=== PATIENT | male | born 1960 ===

== ENCOUNTER 2018-08-08 11:27 | Emergency (ER) | payer OTHER ==
[2018-08-08 11:40] VITALS: PULSE 61; RESP 18; TEMP 97; O2SAT 99
[2018-08-08 14:10] VITALS: BP 170/78
--- NOTE | 2018-08-08 14:18 | CT ---
Date of service: 08/08/2018 PROCEDURE: CT HEAD WITHOUT CONTRAST. HISTORY: fall, hit head COMPARISON: None available. TECHNIQUE: Axial computed tomography images were obtained through the head/brain without intravenous contrast. Radiation dose: Total exam DLP = 939.49 mGy-cm. This CT exam was performed using one or more of the following dose reduction techniques: Automated exposure control, adjustment of the mA and/or kV according to patient size, and/or use of iterative reconstruction technique. FINDINGS: HEMORRHAGE: No intracranial hemorrhage. BRAIN: No mass-effect. Limited diffuse cerebral atrophy chronic microangiopathy are identified with posterior fossa contents appear unremarkable. Trace calcifications seen at the bilateral cavernous internal carotid artery segments no cortical edema throughout. VENTRICLES: Unremarkable. No hydrocephalus. CALVARIUM: No destructive bony lesion or displaced fracture identified including through the skullbase. PARANASAL SINUSES: Unremarkable as visualized. No significant inflammatory changes. MASTOID AIR CELLS: Unremarkable as visualized. No inflammatory changes. OTHER FINDINGS: None. IMPRESSION: Minimal age related neuro degenerative change are identified without acute intracranial findings or fracture noted. The findings are age-appropriate.
--- NOTE | 2018-08-08 14:25 | CT ---
Date of service: 08/08/2018 PROCEDURE: CT Cervical Spine without contrast HISTORY: fall, mild neck pain COMPARISON: None available. TECHNIQUE: Axial computed tomography images were obtained of the cervical spine without the use of intravenous contrast. Coronal and sagittal reformatted images were created and reviewed. Radiation dose: Total exam DLP = 373.58 mGy-cm. This CT exam was performed using one or more of the following dose reduction techniques: Automated exposure control, adjustment of the mA and/or kV according to patient size, and/or use of iterative reconstruction technique. FINDINGS: VERTEBRAE: Limited straightening the cervical curvature is appreciated. There is no fracture or spondylolisthesis identified. No destructive bony lesion is identified either. Multilevel mid to inferior cervical spondylosis appreciated, predominantly anterior rather than posterior however. C1-2 articulation appears moderately degenerated and otherwise unremarkable. Craniocervical junction appears intact. DISCS/SPINAL CANAL/NEURAL FORAMINA: No gross disc herniation is appreciable however MRI is available follow-up if this is clinically suspected. C2-3 is unremarkable except for limited uncovertebral osteophytes. At C3-4, right-sided uncovertebral osteophytes mildly narrow the right neural foramen with the left neural foramen widely patent and unremarkable as well as the central canal. At C4-5, mild right degenerative neural foraminal stenosis appreciate from the same cause noted above with central canal and left neural foramina widely patent. At C5-6, mild degenerative left neural foraminal stenosis appreciate with central canal and right neural foramen adequately patent. At C6-7, mild bilateral degenerative neural foraminal stenoses are identified without significant central canal stenosis. Limited disc bulging is not completely excluded here. C7-T1 is unremarkable. PARASPINAL SOFT TISSUES: Unremarkable. OTHER FINDINGS: None. IMPRESSION: Mild straightening of the cervical curvature is appreciate without fracture or spondylolisthesis appreciated. Multilevel degenerative spondylosis predominantly anterior and affects the mid to inferior levels more so than upper cervical spine. Mild multilevel neural foraminal degenerative stenoses as discussed above. No gross disc herniation appreciable however MRI is more sensitive for this diagnosis and can be utilized electively if this is clinically suspected.
--- NOTE | 2018-08-08 14:42 | ED PDOC ---
HPI: Trauma/Fall - HPI Chief Complaint (Provider): Trauma History Per: Patient History/Exam Limitations: no limitations Onset/Duration Of Symptoms: Hrs Additional Complaint(s): 58 year old male presents to the ER for an evaluation of lower back pain and neck pain onset today. Patient states at work he missed the step and fell backwards from a two-step high ladder, hitting the back of his head. He takes baby aspirin, Metoprolol and Norvasc. Patient visited [facility] who are requesting CT of head and neck and to follow-up with them tomorrow. He denies loss of consciousness. <Shanti Sheets S - Last Filed: 08/08/18 20:02> <Reyes Nunez - Last Filed: 08/09/18 16:53> - HPI Time Seen by Provider: 08/08/18 12:23 Chief Complaint (Nursing): Trauma Past Medical History Reviewed: Historical Data, Nursing Documentation, Vital Signs Vital Signs: Last Vital Signs Temp 97.0 F L 08/08/18 11:36 Pulse 61 08/08/18 11:36 Resp 18 08/08/18 11:36 BP 170/78 H 08/08/18 14:09 Pulse Ox 99 08/08/18 11:36 - Medical History PMH: HTN, Hyperlipidemia - Family History Family History: States: Unknown Family Hx - Social History Current smoker - smoking cessation education provided: No Alcohol: Social Drugs: Denies - Immunization History Hx Tetanus Toxoid Vaccination: No <Shanti Sheets S - Last Filed: 08/08/18 20:02> Vital Signs: Last Vital Signs Temp 97.0 F L 08/08/18 11:36 Pulse 61 08/08/18 11:36 Resp 18 08/08/18 11:36 BP 170/78 H 08/08/18 14:09 Pulse Ox 99 08/08/18 20:03 <Reyes Nunez - Last Filed: 08/09/18 16:53> - Allergies Allergies/Adverse Reactions: Allergies Allergy/AdvReac Type Severity Reaction Status Date / Time almond Allergy SWELLING Verified 08/08/18 11:35 clindamycin Allergy SWELLING Verified 08/08/18 11:35 levofloxacin [From Levaquin] Allergy SWELLING Verified 08/08/18 11:35 lisinopril Allergy SWELLING Verified 08/08/18 11:35 sulfamethoxazole Allergy SWELLING Verified 08/08/18 11:35 [From Bactrim] trimethoprim [From Bactrim] Allergy SWELLING Verified 08/08/18 11:35 Review of Systems ROS Statement: Except As Marked, All Systems Reviewed And Found Negative Constitutional: Negative for: Fever Musculoskeletal: Positive for: Neck Pain, Back Pain Neurological: Negative for: Other (LOC) Psych: Negative for: Suicidal ideation (homicidal ideation) <Shanti Sheets S - Last Filed: 08/08/18 20:02> Physical Exam - Reviewed Nursing Documentation Reviewed: Yes Vital Signs Reviewed: Yes - Physical Exam Appears: Positive for: Well, Non-toxic, No Acute Distress Head Exam: Positive for: ATRAUMATIC, NORMOCEPHALIC. Negative for: NORMAL INSPECTION (hematoma to occipital aspect) Skin: Positive for: Normal Color, Warm, Dry. Negative for: Rash Eye Exam: Positive for: Normal appearance Neck: Positive for: Normal, Painless ROM, Supple. Negative for: Decreased ROM Back: Positive for: Normal Inspection. Negative for: L CVA Tenderness, R CVA Tenderness Neurologic/Psych: Positive for: Alert, Oriented (x3). Negative for: Motor/Sensory Deficits <Shanti Sheets S - Last Filed: 08/08/18 20:02> - ECG O2 Sat by Pulse Oximetry: 99 (RA) Pulse Ox Interpretation: Normal <Shanti Sheets S - Last Filed: 08/08/18 20:02> Medical Decision Making Medical Decision Making: Time: 1244 --Cervical Spine w/o Contrast CT --Head w/o Contrast CT --LS Spine AP/LAT [RAD] --Reevaluation Pt. well appearing, declining pain meds. Repeat bp 170/78, pt. is due to take his pm bp meds when he gets home. Pt. has f/u arranged at [facility] tomorrow. Time: 1415 PROCEDURE: CT HEAD WITHOUT CONTRAST. HISTORY: fall, hit head COMPARISON: None available. TECHNIQUE: Axial computed tomography images were obtained through the head/brain without intravenous contrast. Radiation dose: Total exam DLP = 939.49 mGy-cm. This CT exam was performed using one or more of the following dose reduction techniques: Automated exposure control, adjustment of the mA and/or kV according to patient size, and/or use of iterative reconstruction technique. FINDINGS: HEMORRHAGE: No intracranial hemorrhage. BRAIN: No mass-effect. Limited diffuse cerebral atrophy chronic microangiopathy are identified with posterior fossa contents appear unremarkable. Trace calcifications seen at the bilateral cavernous internal carotid artery segments no cortical edema throughout. VENTRICLES: Unremarkable. No hydrocephalus. CALVARIUM: No destructive bony lesion or displaced fracture identified including through the skullbase. PARANASAL SINUSES: Unremarkable as visualized. No significant inflammatory changes. MASTOID AIR CELLS: Unremarkable as visualized. No inflammatory changes. OTHER FINDINGS: None. IMPRESSION: Minimal age related neuro degenerative change are identified without acute intracranial findings or fracture noted. The findings are age-appropriate. Time: 1423 PROCEDURE: CT Cervical Spine without contrast HISTORY: fall, mild neck pain COMPARISON: None available. TECHNIQUE: Axial computed tomography images were obtained of the cervical spine without the use of intravenous contrast. Coronal and sagittal reformatted images were created and reviewed. Radiation dose: Total exam DLP = 373.58 mGy-cm. This CT exam was performed using one or more of the following dose reduction techniques: Automated exposure control, adjustment of the mA and/or kV according to patient size, and/or use of iterative reconstruction technique. FINDINGS: VERTEBRAE: Limited straightening the cervical curvature is appreciated. There is no fracture or spondylolisthesis identified. No destructive bony lesion is identified either. Multilevel mid to inferior cervical spondylosis appreciated, predominantly anterior rather than posterior however. C1-2 articulation appears moderately degenerated and otherwise unremarkable. Craniocervical junction appears intact. DISCS/SPINAL CANAL/NEURAL FORAMINA: No gross disc herniation is appreciable however MRI is available follow-up if this is clinically suspected. C2-3 is unremarkable except for limited uncovertebral osteophytes. At C3-4, right-sided uncovertebral osteophytes mildly narrow the right neural foramen with the left neural foramen widely patent and unremarkable as well as the central canal. At C4-5, mild right degenerative neural foraminal stenosis appreciate from the same cause noted above with central canal and left neural foramina widely patent. At C5-6, mild degenerative left neural foraminal stenosis appreciate with central canal and right neural foramen adequately patent. At C6-7, mild bilateral degenerative neural foraminal stenoses are identified without significant central canal stenosis. Limited disc bulging is not completely excluded here. C7-T1 is unremarkable. PARASPINAL SOFT TISSUES: Unremarkable. OTHER FINDINGS: None. IMPRESSION: Mild straightening of the cervical curvature is appreciate without fracture or spondylolisthesis appreciated. Multilevel degenerative spondylosis predominantly anterior and affects the mid to inferior levels more so than upper cervical spine. Mild multilevel neural foraminal degenerative stenoses as discussed above. No gross disc herniation appreciable however MRI is more sensitive for this diagnosis and can be utilized electively if this is clinically suspected. XR of lumbar spine comp w/ Flex Ext: no fracture, no dislocation, as read by PA. Scribe Attestation: Documented by Kenia Puente, acting as a scribe for Shanti Sheets PA-C. Provider Scribe Attestation: All medical record entries made by the Scribe were at my direction and personally dictated by me. I have reviewed the chart and agree that the record accurately reflects my personal performance of the history, physical exam, medical decision making, and the department course for this patient. I have also personally directed, reviewed, and agree with the discharge instructions and disposition. <Shanti Sheets - Last Filed: 08/08/18 20:02> Disposition - Patient ED Disposition Is Patient to be Admitted: No - Disposition Disposition: Against Medical Advice (1500) Disposition Time: 16:35 <Shanti Sheets - Last Filed: 08/08/18 20:02> <Reyes Nunez - Last Filed: 08/09/18 16:53> - Clinical Impression Clinical Impression: Head injury, Cervical strain, Lumbar strain - Disposition Condition: IMPROVED Instructions: Low Back Pain in Adults, Lumbar Muscle Strain (DC), Minor Head Injury (DC), Cervical Muscle Strain Forms: [employer] (Hebrew) Addendum Addendum: 08/09/18 16:53 Reviewed PA chart and agree. <Reyes Nunez - Last Filed: 08/09/18 16:53>
--- NOTE | 2018-08-08 16:59 | RAD ---
Date of service: 08/08/2018 PROCEDURE: Radiographs of the Lumbar Spine. HISTORY: fall, back pain COMPARISON: No prior. FINDINGS: BONES: There is 6 mm of anterior subluxation of L5 over S1. There is no definite evidence of spondylolysis. DISC SPACES: Unremarkable. OTHER FINDINGS: None. IMPRESSION: There is 6 mm of anterior subluxation of L5 over S1. There is no definite evidence of spondylolysis.
== END 2018-08-08 15:37 | disposition home or self-care (01) ==
LOC: H.ER 11:27
DX: S09.90XA Unspecified injury of head, initial encounter (principal); S16.1XXA Strain of muscle, fascia and tendon at neck level, initial encounter; S39.012A Strain of muscle, fascia and tendon of lower back, initial encounter; W10.9XXA Fall (on) (from) unspecified stairs and steps, initial encounter; Y99.0 Civilian activity done for income or pay; E78.5 Hyperlipidemia, unspecified; I10 Essential (primary) hypertension